=== PATIENT | male | born 1950 | race Caucasian/White ===

== ENCOUNTER 2022-07-04 14:31 | Inpatient (IN) ==
[2022-07-04 15:42] LABS: ABS Eosinophils 0.1 10^3/ul (0-0.6); ABS Lymphocytes 0.3 10^3/ul (1.0-4.8); ABS Monocytes 1.4 10^3/ul (0-0.8); Eosinophil % 0.9 %; Hematocrit 37 % (42-52); Hemoglobin 12.4 g/dL (14.0-18.0); Lymphocyte % 3.8 %; Mean Corpuscular HGB Conc 33 g/dL (31-36); Mean Corpuscular Hemoglobin 31 pg (27-31); Mean Corpuscular Volume 95 fL (80-94); Platelet Count 260 10^3/uL (150-450); Red Blood Count 3.95 10^6 /uL (4.18-5.48); Red Cell Distribution Width 16 % (10-15); White Blood Count 8.8 10^3/uL (3.5-10.8)
[2022-07-04 15:47] LABS: INR 1.14 (0.89-1.11)
[2022-07-04 16:22] LABS: Albumin/Globulin Ratio 1.3 (1-3); Calcium 9.4 mg/dL (8.6-10.3); Globulin 3.2 g/dL (2-4); Magnesium 1.7 mg/dL (1.9-2.7); Potassium 4.5 mmol/L (3.5-5.0); Total Bilirubin 0.9 mg/dL (0.2-1.0); Total Protein 7.2 g/dL (6.4-8.9); eGFR CKD-EPI 33.8 (>60)
[2022-07-04] MEDS ORDERED: Iodixanol (CONTRAST) 320 MG/ML 100 ML SDV IV ONE (16:31)
[2022-07-04] MEDS ORDERED: Lactated Ringers 1000 ml BAG 1,000 ML IV ONE (16:45)
[2022-07-04 17:31] LABS: C Reactive Protein 193.09 mg/L (<8.01)
[2022-07-04] MEDS ORDERED: Magnesium Sulf 4 GM/100 ML IV 4,000 MG/100 ML BAG IVPB ONE (18:46)
[2022-07-04] MEDS ORDERED: methylPREDNISolone SOD SUCC 125 mg 2 ML VIAL IV ONE (18:54)
[2022-07-04] MEDS ORDERED: NS 0.9% 1000 ml BAG 1,000 ML IV SCH ×2 (19:15→23:40)
[2022-07-04] MEDS: Enoxaparin 40 MG/0.4 ML SYR SUBCUT SCH (19:43)
[2022-07-04] MEDS ORDERED: Fluconazole ORAL.SUSP 40 MG/ML 35 ML BTL PO SCH (20:00)
[2022-07-04] MEDS ORDERED: Labetalol IV 5 MG/ML 20 ml VIAL IV PUSH ONE (20:01)
[2022-07-04] MEDS ORDERED: Fluconazole SUSP ORALSYR 40 MG/ML PO SCH (21:00)
[2022-07-05] MEDS ORDERED: methylPREDNISolone SOD SUCC 125 mg 2 ML VIAL IV SCH ×4 (00:01→09:00)
[2022-07-05] MEDS ORDERED: NS 0.9% 1000 ml BAG 1,000 ML IV SCH (00:14)
[2022-07-05] MEDS: methylPREDNISolone SOD SUCC 125 mg 2 ML VIAL IV SCH ×3 (02:09→15:48)
[2022-07-05] MEDS ORDERED: Labetalol IV 5 MG/ML 20 ml VIAL IV PUSH PRN ×4 (03:00→10:52)
[2022-07-05] MEDS ORDERED: Dextrose 50% Syringe 50 ml 25 GM/50 ML SYRINGE IV PUSH PRN (03:03)
[2022-07-05] MEDS: Labetalol IV 5 MG/ML 20 ml VIAL IV PUSH PRN ×2 (04:54→07:06)
[2022-07-05 06:02] LABS: ABS Lymphocytes 0.1 10^3/ul (1.0-4.8); ABS Monocytes 0.1 10^3/ul (0-0.8); ABS Neutrophils 4.5 10^3/ul (1.5-7.7); Eosinophil % 0.1 %; Hematocrit 35 % (42-52); Hemoglobin 11.6 g/dL (14.0-18.0); Lymphocyte % 3.1 %; Mean Corpuscular HGB Conc 33 g/dL (31-36); Mean Corpuscular Hemoglobin 31 pg (27-31); Mean Corpuscular Volume 95 fL (80-94); Platelet Count 222 10^3/uL (150-450); Red Blood Count 3.71 10^6 /uL (4.18-5.48); Red Cell Distribution Width 16 % (10-15); White Blood Count 4.7 10^3/uL (3.5-10.8)
[2022-07-05 06:56] LABS: ALT 26 U/L (7-52); AST 29 U/L (13-39); Albumin 3.5 g/dL (3.2-5.2); Albumin/Globulin Ratio 1.2 (1-3); Alkaline Phosphatase 151 U/L (35-149); Blood Urea Nitrogen 51 mg/dL (6-24); CO2 Carbon Dioxide 16 mmol/L (22-32); Calcium 8.9 mg/dL (8.6-10.3); Chloride 104 mmol/L (101-111); Glucose 289 mg/dL (70-100); Magnesium 2.2 mg/dL (1.9-2.7); Sodium 141 mmol/L (135-145); Total Protein 6.5 g/dL (6.4-8.9); eGFR CKD-EPI 31.4 (>60)
[2022-07-05 06:58] LABS: Anion Gap 21 mmol/L (2-11); Potassium 5.5 mmol/L (3.5-5.0)
[2022-07-05 08:37] LABS: Folate > 20.00 ng/mL (5.90-24.80)
[2022-07-05 08:38] LABS: Vitamin B12 442 pg/mL (180-914)
[2022-07-05] MEDS ORDERED: Lactated Ringers 1000 ml BAG 1,000 ML IV ONE (09:11)
[2022-07-05] MEDS ORDERED: Pantoprazole VIAL 40 MG VIAL IV SCH (09:30)
[2022-07-05 10:32] LABS: Venous Bicarbonate HCO3 20.1 mmol/L (24-28)
[2022-07-05] MEDS: Insulin GLARGINE 100 un/ml 10 ml VIAL SUBCUT SCH (10:36)
[2022-07-05] MEDS: hydrALAZINE 20 mg/ml 1 ML Vial IV IV SLOW PU PRN ×2 (10:37→20:01)
[2022-07-05 10:44] LABS: Urine Appearance Cloudy; Urine Bilirubin Negative (Negative); Urine Blood Negative (Negative); Urine Color Yellow; Urine Glucose 2+(150 mg/dL) (Negative); Urine Ketones 1+ (Negative); Urine Nitrite Negative (Negative); Urine Protein 2+(100 mg/dL) (Negative); Urine Specific Gravity 1.021 (1.002-1.030); Urine Urobilinogen Negative (Negative)
[2022-07-05 11:26] LABS: Urine Bacteria Absent (Absent); Urine Red Blood Cell Trace(0-2/hpf) (Absent); Urine Squamous Epithelial Cell Present (Absent); Urine White Blood Cell Trace(0-5/hpf) (Absent)
[2022-07-05] MEDS ORDERED: Lactated Ringers 1000 ml BAG 1,000 ML IV SCH ×2 (17:00)
[2022-07-05 19:53] LABS: Calcium 9.1 mg/dL (8.6-10.3); Magnesium 2.1 mg/dL (1.9-2.7)
[2022-07-05 19:54] LABS: Potassium 5.1 mmol/L (3.5-5.0)
[2022-07-05] MEDS: Enoxaparin 40 MG/0.4 ML SYR SUBCUT SCH (20:01)
[2022-07-05] MEDS: Lactated Ringers 1000 ml BAG 1,000 ML IV SCH (20:13)
[2022-07-06] MEDS: Lactated Ringers 1000 ml BAG 1,000 ML IV SCH ×2 (03:52→12:49)
[2022-07-06 06:47] LABS: ABS Lymphocytes 0.2 10^3/ul (1.0-4.8); ABS Monocytes 0.7 10^3/ul (0-0.8); ABS Neutrophils 8.4 10^3/ul (1.5-7.7); Hematocrit 35 % (42-52); Hemoglobin 11.5 g/dL (14.0-18.0); Lymphocyte % 1.6 %; Mean Corpuscular HGB Conc 33 g/dL (31-36); Mean Corpuscular Hemoglobin 31 pg (27-31); Mean Corpuscular Volume 94 fL (80-94); Mean Platelet Volume 9.1 fL (7.4-10.4); Platelet Count 240 10^3/uL (150-450); Red Blood Count 3.77 10^6 /uL (4.18-5.48); Red Cell Distribution Width 16 % (10-15); White Blood Count 9.2 10^3/uL (3.5-10.8)
[2022-07-06 07:35] LABS: Albumin 3.3 g/dL (3.2-5.2); Albumin/Globulin Ratio 1.1 (1-3); Globulin 3.1 g/dL (2-4); Potassium 4.8 mmol/L (3.5-5.0); Total Bilirubin 0.4 mg/dL (0.2-1.0); Total Protein 6.4 g/dL (6.4-8.9); eGFR CKD-EPI 31.8 (>60)
[2022-07-06] MEDS: Insulin GLARGINE 100 un/ml 10 ml VIAL SUBCUT SCH (11:02)
[2022-07-06] MEDS ORDERED: fentaNYL PATCH 12 MCG/HR 1 PATCH TRANSDERM SCH (18:00)
[2022-07-06] MEDS: fentaNYL Patch Check Q Shift NOTE FOLLOW UP SCH (20:01)
[2022-07-06] MEDS: Enoxaparin 40 MG/0.4 ML SYR SUBCUT SCH (21:48)
[2022-07-07] MEDS: Lactated Ringers 1000 ml BAG 1,000 ML IV SCH ×3 (01:30→22:16)
[2022-07-07] MEDS: hydrALAZINE 20 mg/ml 1 ML Vial IV IV SLOW PU PRN (04:47)
[2022-07-07 06:01] LABS: Mean Platelet Volume 8.2 fL (7.4-10.4); Platelet Count 243 10^3/uL (150-450)
[2022-07-07 06:05] LABS: INR 1.1 (0.89-1.11)
[2022-07-07 06:37] LABS: Calcium 9.2 mg/dL (8.6-10.3); Potassium 4.3 mmol/L (3.5-5.0)
[2022-07-07 06:43] LABS: eGFR CKD-EPI 37.2 (>60)
[2022-07-07] MEDS: fentaNYL Patch Check Q Shift NOTE FOLLOW UP SCH ×2 (07:10→19:37)
[2022-07-07] MEDS: Insulin GLARGINE 100 un/ml 10 ml VIAL SUBCUT SCH (09:36)
[2022-07-07] MEDS ORDERED: cloNIDine 0.1 MG PATCH 0.1 MG/24 HR 7 DAY PATCH TRANSDERM SCH (11:00)
[2022-07-07] MEDS ORDERED: fentaNYL PATCH 25 MCG/HR 1 PATCH TRANSDERM SCH (16:00)
[2022-07-07] MEDS ORDERED: cloNIDine 0.2 MG PATCH 0.2 MG/24 HR 7 DAY PATCH TRANSDERM SCH (17:15)
[2022-07-08 05:42] LABS: ABS Eosinophils 0.1 10^3/ul (0-0.6); ABS Lymphocytes 0.4 10^3/ul (1.0-4.8); ABS Neutrophils 5.2 10^3/ul (1.5-7.7); Hematocrit 39 % (42-52); Hemoglobin 12.7 g/dL (14.0-18.0); Lymphocyte % 5.4 %; Mean Corpuscular HGB Conc 33 g/dL (31-36); Mean Corpuscular Hemoglobin 30 pg (27-31); Mean Corpuscular Volume 94 fL (80-94); Platelet Count 241 10^3/uL (150-450); Red Blood Count 4.19 10^6 /uL (4.18-5.48); Red Cell Distribution Width 16 % (10-15); White Blood Count 6.7 10^3/uL (3.5-10.8)
[2022-07-08 06:35] LABS: Magnesium 1.6 mg/dL (1.9-2.7); Potassium 4.3 mmol/L (3.5-5.0); eGFR CKD-EPI 46.8 (>60)
[2022-07-08] MEDS: fentaNYL Patch Check Q Shift NOTE FOLLOW UP SCH ×2 (07:26→19:25)
[2022-07-08] MEDS ORDERED: Magnesium Sulfate IV 3 GM in NS 0.9% 100 ml BAG 100 ML IVPB ONE (07:30)
[2022-07-08] MEDS ORDERED: Midazolam 2 mg/2 ml VIAL 1 mg/ml 2 ml VIAL (2 mg) ONE ×2 (08:07→09:02)
[2022-07-08] MEDS ORDERED: fentaNYL 250 mcg/5 ml 50 MCG/ML 5 ml VIAL (250 MCG) ONE (08:07)
[2022-07-08] MEDS ORDERED: Lidocaine 2% JELLY 6 ML Topical TOPICAL ONE (08:08)
[2022-07-08] MEDS ORDERED: ceFAZolin 1 GM ADVAN 1 GM ADDV.VIAL IVPB ONE (08:08)
[2022-07-08] MEDS ORDERED: hydrALAZINE 20 mg/ml 1 ML Vial IV IV SLOW PU PRN (08:28)
[2022-07-08] MEDS ORDERED: NS 0.45% 1000 ml BAG 1,000 ML IV SCH (10:00)
[2022-07-08] MEDS: Insulin GLARGINE 100 un/ml 10 ml VIAL SUBCUT SCH (10:23)
[2022-07-08] MEDS: D5W 1/2 NS 1000 ml BAG 1,000 ML IV SCH (11:06)
[2022-07-08] MEDS: Enalaprilat IV 1.25 mg/ml 1 ml VIAL (1.25 MG) IV SCH ×3 (11:19→22:21)
[2022-07-08] MEDS: Enoxaparin 40 MG/0.4 ML SYR SUBCUT SCH (15:58)
[2022-07-08] MEDS ORDERED: fentaNYL PATCH 50 MCG/HR 1 PATCH TRANSDERM SCH ×2 (17:29→18:19)
[2022-07-08] MEDS ORDERED: fentaNYL PATCH 25 MCG/HR 1 PATCH TRANSDERM SCH (19:00)
[2022-07-08] MEDS ORDERED: fentaNYL PATCH 12 MCG/HR 1 PATCH TRANSDERM SCH (19:00)
[2022-07-08 23:32] LABS: Urine Creatinine 137.77 mg/dL; Urine Creatinine Concentration 137.77 mg/dL
[2022-07-09 01:27] LABS: UR Microalbumin (mg/L) 3907.2 mg/L
[2022-07-09] MEDS: D5W 1/2 NS 1000 ml BAG 1,000 ML IV SCH (01:54)
[2022-07-09] MEDS: Enalaprilat IV 1.25 mg/ml 1 ml VIAL (1.25 MG) IV SCH ×2 (04:14→09:38)
[2022-07-09 05:27] LABS: ABS Eosinophils 0.2 10^3/ul (0-0.6); ABS Lymphocytes 0.3 10^3/ul (1.0-4.8); ABS Monocytes 0.8 10^3/ul (0-0.8); ABS Neutrophils 4.5 10^3/ul (1.5-7.7); Eosinophil % 4.2 %; Hematocrit 39 % (42-52); Hemoglobin 12.8 g/dL (14.0-18.0); Lymphocyte % 5.2 %; Mean Corpuscular HGB Conc 33 g/dL (31-36); Mean Corpuscular Hemoglobin 31 pg (27-31); Mean Corpuscular Volume 94 fL (80-94); Nucleated Red Blood Cells % 0.1; Platelet Count 213 10^3/uL (150-450); Red Blood Count 4.16 10^6 /uL (4.18-5.48); Red Cell Distribution Width 16 % (10-15); White Blood Count 5.8 10^3/uL (3.5-10.8)
[2022-07-09 06:07] LABS: Calcium 8.6 mg/dL (8.6-10.3); Potassium 4.2 mmol/L (3.5-5.0); eGFR CKD-EPI 43.1 (>60)
[2022-07-09] MEDS: fentaNYL Patch Check Q Shift NOTE FOLLOW UP SCH (07:13)
[2022-07-09] MEDS: Insulin GLARGINE 100 un/ml 10 ml VIAL SUBCUT SCH (07:27)
[2022-07-09] MEDS: Enoxaparin 40 MG/0.4 ML SYR SUBCUT SCH (12:58)
[2022-07-09 15:30] VITALS: BP 124/54
[2022-07-09] MEDS ORDERED: PIOGLITAZONE PO SCH (21:00)
== END 2022-07-09 16:28 | disposition home or self-care (01) | DRG 392 ==
LOC: EDHOLD 14:31 → ED 14:31 → SUATTDRO 18:49 → EDHOLD 07-05 07:34 → SUATTDRO 07-05 11:01 → EDHOLD 07-05 17:45 → MEDTELE 07-05 17:52
PROVIDERS: ADMIT Hospitalist; ATTEND Hospitalist